=== PATIENT | male | born 1985 | race Caucasian/White ===

== ENCOUNTER 2019-04-20 21:00 | Emergency (ER) | payer OTHER ==
[~2019-04-20] VITALS: Ht 193 cm; Wt 95.0 kg
[2019-04-20] MEDS ORDERED: TETRACAINE 0.5% OPHTH SOLN 4ML OD ONE (21:30)
[2019-04-20] MEDS ORDERED: TROPICAMIDE 0.5% OPHTH SOLN 15 ML OD ONE (21:30)
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
[2019-04-21 01:00] VITALS: BP 129/57
== END 2019-04-21 01:03 | disposition short-term general hospital (02) ==
LOC: M ED 21:00
DX: G45.3 Amaurosis fugax (principal); S05.00XA Injury of conjunctiva and corneal abrasion without foreign body, unspecified eye, initial encounter; Y04.2XXA Assault by strike against or bumped into by another person, initial encounter; Y92.149 Unspecified place in prison as the place of occurrence of the external cause